=== PATIENT | female | born 2000 | race Two or more races ===

== ENCOUNTER 2022-07-10 22:20 | Outpatient (REF) | payer OTHER, SELFPAY | END 2022-07-10 22:21 | LOC: LAB 22:20 | PROVIDERS: PCP Physician Assistant; Visit Provider Physician Assistant | DX: Z34.93 Encounter for supervision of normal pregnancy, unspecified, third trimester (principal); Z3A.00 Weeks of gestation of pregnancy not specified | CPT/HCPCS: 87081 ==

== ENCOUNTER 2022-07-28 12:16 | Emergency (ER) | payer OTHER, SELFPAY ==
[2022-07-28 12:20] VITALS: BP 115/80; PULSE 84; RESP 16; TEMP 36.3; O2SAT 95; BMI 30.8
--- NOTE | 2022-07-28 12:33 | ED.GENADUL1 ---
HPI - General Adult General Chief complaint: Extremity Injury, Upper Stated complaint: UPPER EXTERMITY INJURY LEFT THUMB Time Seen by Provider: 07/28/22 12:27 Source: patient Mode of arrival: walk-in History of Present Illness HPI narrative: patient accidentally cut herself with a knife at home while open a box. She sustained a small cut to the dorsal surface of the left thumb. Bleeding is controlled. She washed the thumb after the injury. She is right handed and tetanus is up to date. Related Data Allergies Allergy/AdvReac Type Severity Reaction Status Date / Time No Known Drug Allergies Allergy Verified 07/28/22 12:24 Exam Narrative Exam Narrative: Nurses notes and vital signs reviewed and patient is not hypoxic. afebrile General: Well-appearing and in no apparent distress. Skin: Warm, dry, no pallor noted. Cardiovascular: normal peripheral perfusion Respiratory: No accessory muscle use or respiratory distress. Musculoskeletal: 4mm linear and shallow laceration to the dorsal surface of the left thumb. No foreign material within the wound. Bleeding is controlled. The left thumb has normal ROM. Not deep enough to affect the tendon. Neurological: A&O x4. No cranial nerve dysfunction observed. No truncal ataxia. Moves all extremities. Sensation intact. Psychiatric: Cooperative and interactive. Normal mood and affect. Constitutional Vital Signs - 24 hr 07/28/22 12:20 Temperature 97.3 F L Pulse Rate [Monitor] 84 Respiratory Rate 16 Blood Pressure [Right Arm] 115/80 H Pulse Oximetry 95 Oxygen Delivery Method Room Air Course Vital Signs Vital signs: Vital Signs Temperature 97.3 F L 07/28/22 12:20 Pulse Rate 84 07/28/22 12:20 Respiratory Rate 16 07/28/22 12:20 Blood Pressure 115/80 H 07/28/22 12:20 Pulse Oximetry 95 07/28/22 12:20 Oxygen Delivery Method Room Air 07/28/22 12:20 Temperature 97.3 F L 07/28/22 12:20 Pulse Rate 84 07/28/22 12:20 Respiratory Rate 16 07/28/22 12:20 Blood Pressure 115/80 H 07/28/22 12:20 Pulse Oximetry 95 07/28/22 12:20 Oxygen Delivery Method Room Air 07/28/22 12:20 Medical Decision Making MDM Narrative Medical decision making narrative: no need for suture repair. I applied a dry sterile bandage to the patient's left thumb and she was given reassurance. Discharge Plan Discharge Chief Complaint: Extremity Injury, Upper Clinical Impression: Laceration of left thumb Patient Disposition: Home, Self-Care Time of Disposition Decision: 12:36 Instructions: Finger Laceration (ED) Stand Alone Forms: Portal Instructions Referrals: Physician,Non-Staff, MD [Primary Care Provider] - 1 week
== END 2022-07-28 12:56 | disposition home or self-care (01) ==
PROVIDERS: Emergency Provider Emergency Medicine
DX: S61.012A Laceration without foreign body of left thumb without damage to nail, initial encounter (principal); W26.0XXA Contact with knife, initial encounter
CPT/HCPCS: 99282

== ENCOUNTER 2022-08-01 13:24 | Inpatient (IN) | payer OTHER, SELFPAY ==
[2022-08-01] VITALS (31 sets, daily range): BP systolic 96–117; BP diastolic 61–81; PULSE 60–106; RESP 11–25; TEMP 36.6–37.3; O2SAT 97–100
[2022-08-01 10:10] LABS: Amphetamine Screen Urine NEGATIVE (NEGATIVE); Barbiturates Screen Urine NEGATIVE (NEGATIVE); Benzodiazepines Screen Urine NEGATIVE (NEGATIVE); Buprenorphine Screen Urine NEGATIVE (NEGATIVE); Cannabinoid Screen Urine NEGATIVE (NEGATIVE); Cocaine Screen Urine NEGATIVE (NEGATIVE); Methadone Screen Urine NEGATIVE (NEGATIVE); Methamphetamines Screen Urine NEGATIVE (NEGATIVE); Opiate Screen Urine NEGATIVE (NEGATIVE); Oxycodone Screen Urine NEGATIVE (NEGATIVE); Phencyclidine Screen Urine NEGATIVE (NEGATIVE); Tricyclic Antidepressant Urine NEGATIVE (NEGATIVE)
[2022-08-01 10:13] LABS: Basophils Percent Auto 0.3 % (0.2-2.0); Eosinophils Absolute Auto 0.1 10^3/uL (0.0-0.7); Eosinophils Percent Auto 0.9 % (0.9-7.0); Hematocrit 27.1 % (36.0-48.0); Hemoglobin 8.2 g/dL (12.0-16.0); Immature Granulocytes Abs Auto 0.07 10^3/uL (0.00-0.03); Immature Granulocytes Pct Auto 0.9 % (0.0-0.5); Lymphocytes Percent Auto 26.6 % (20.5-60.0); Mean Corpuscular HGB Conc 30.3 g/dL (29.9-35.2); Mean Corpuscular Hemoglobin 24.3 pg (26.7-34.0); Mean Corpuscular Volume 80.2 fL (81.0-99.0); Mean Platelet Volume 10.6 fL (9.5-13.5); Monocytes Absolute Auto 0.7 10^3/uL (0.3-0.8); Monocytes Percent Auto 9.3 % (1.7-12.0); Neutrophils Absolute Auto 4.6 10^3/uL (1.4-6.5); Platelet Count 200 10^3/uL (150-450); Red Blood Count 3.38 10^6/uL (4.20-5.40); Red Cell Distribution Width 16.5 % (11.0-15.0); White Blood Count 7.4 10^3/uL (4.0-11.0)
[2022-08-01] MEDS: METOCLOPRAMIDE HCL 10 MG/2 ML VIAL IVP (10:28)
[2022-08-01] MEDS: CITRIC ACID/SODIUM CITRATE 30 ML SOLUTION PO (10:28)
[2022-08-01] MEDS: CEFAZOLIN SODIUM/DEXTROSE 2 GM/50 ML PIGGYBACK IV (10:29)
[2022-08-01] MEDS: FAMOTIDINE/PF 20 MG/2 ML VIAL IV (10:29)
[2022-08-01] MEDS: 0.9 % SODIUM CHLORIDE 1,000 ML 125 ML IV ×2 (10:29→17:12)
--- NOTE | 2022-08-01 11:31 | PC.NURSE ---
HEART TONES 140BPM PER [facility] NURSE PRIOR TO START OF CASE
[2022-08-01] MEDS: ACETAMINOPHEN 325 MG TABLET 650 MG PO (14:47)
--- NOTE | 2022-08-01 16:48 | PC.NURSE ---
1300- remains at breast, actively nursing 1340-eats lunch, tolerates well. assessment wnl, drsg dry. rubra minimal 1400-Tylenol 650 given as requested for 6/10 incisonal pain, drsg remains dry. rubra minimal 1500-visitors in, pt denies needs. drsg dry 1600-dozing, visitors in, denies needs.
[2022-08-01] MEDS: KETOROLAC TROMETHAMINE 30 MG/ML VIAL IVP (17:11)
[2022-08-01] MEDS: CEFAZOLIN SODIUM/DEXTROSE,ISO 1 GM/50 ML IV.SOLN IV (17:19)
--- NOTE | 2022-08-01 19:08 | PC.NURSE ---
1700- nurses for approx 1hr. 1840-eats supper, denies needs. 1900-report to next shift. care rellinquished
[2022-08-02] VITALS (29 sets, daily range): BP systolic 99–126; BP diastolic 60–84; PULSE 75–93; RESP 16–18; TEMP 36.6–37.3; O2SAT 97
--- NOTE | 2022-08-02 03:01 | W.PC.ACHO ---
Registration Status: ADM IN Primary Language: Preferred Language: Active Medications Generic Name Dose Route Start Last Admin Trade Name Freq PRN Reason Stop Dose Admin Acetaminophen 650 mg 08/01/22 14:40 08/01/22 14:47 Acetaminophen 325 Mg Tablet PO 650 mg Q6H PRN Administration Pain Diphenhydramine HCl 25 mg 08/01/22 14:23 Diphenhydramine Hcl 50 Mg/Ml (1ml) Vial IV 08/02/22 14:24 Q6H PRN Itching Docusate Sodium 100 mg 08/02/22 09:00 Docusate Sodium 100 Mg Capsule PO BID SYBIL Sodium Chloride 1,000 mls @ 125 mls/hr 08/01/22 09:30 08/01/22 17:12 Sodium Chloride 0.9% 1,000 Ml IV 125 mls/hr .Q8H SYBIL Administration Ibuprofen 800 mg 08/01/22 14:23 Ibuprofen 400 Mg Tablet PO Q8H PRN Pain Ketorolac Tromethamine 30 mg 08/01/22 14:23 08/01/22 17:11 Ketorolac Tromethamine 30 Mg/Ml Vial IVP 08/03/22 14:24 30 mg Q6H PRN Administration Pain Nalbuphine HCl 10 mg 08/01/22 14:23 Nalbuphine Hcl 10 Mg/Ml Ampule IV 08/02/22 14:24 Q3H PRN Itching Ondansetron HCl 4 mg 08/01/22 14:23 Ondansetron Pf 4 Mg/2 Ml Vial IV Q6H PRN Nausea And Vomiting Ondansetron HCl 4 mg 08/01/22 14:23 Ondansetron 4 Mg Rapdis Tablet PO Q6H PRN Nausea And Vomiting Oxycodone/Acetaminophen 2 each 08/01/22 14:23 Oxycodone Hcl/Acetaminophen 5-325 Mg Tablet PO Q4H PRN Pain Rho Immune Globulin 1,500 unit 08/02/22 08:00 Rho(D) Immune Globulin 1,500 Unit Syringe IV 08/02/22 08:01 ONCE ONE Senna 17.2 mg 08/01/22 20:00 Sennosides 8.6 Mg Tablet PO QHS PRN Constipation Simethicone 80 mg 08/01/22 14:23 Simethicone 80 Mg Tab.Chew PO QID PRN Abdominal Distention Diet Category Date Time Status Regular Consistency Diet Diet 08/01/22 Lunch Active IV Insertion/Site IV Catheter Type [Right Peripheral IV Forearm] IV Catheter Type [Right Peripheral IV Forearm] Neurology Lauren coma scale total score 15 Lauren coma scale total score 15 Comstock coma scale total score 15 Respiratory Lung sounds [Bilateral clear Throughout] Lung sounds [Bilateral clear Throughout] Lung sounds [Bilateral clear Throughout] Lung sounds [Bilateral clear Throughout] Pulse Oximetry 97 Pulse Oximetry 97 Pulse Oximetry 97 Pulse Oximetry 99 Pulse Oximetry 100 Pulse Oximetry 100 Pulse Oximetry 100 Pulse Oximetry 100 Pulse Oximetry 100 Pulse Oximetry 100 Pulse Oximetry 100 Pulse Oximetry 100 Pulse Oximetry 100 Pulse Oximetry 100 Pulse Oximetry 100 Oxygen Delivery Method Room Air Oxygen Delivery Method Room Air Oxygen Delivery Method Room Air Oxygen Delivery Method Room Air Oxygen Delivery Method Room Air Oxygen Delivery Method Room Air Cardiology Heart Sounds Regular Catheter Urinary Catheter Date of 08/01/22 Insertion [Urethral] Urinary Catheter Date of 08/01/22 Insertion [Urethral] Urinary Catheter Date of 08/01/22 Insertion [Urethral] Urinary Catheter Time of 10:00 Insertion [Urethral]
[2022-08-02] MEDS: KETOROLAC TROMETHAMINE 30 MG/ML VIAL IVP ×3 (06:04→21:48)
--- NOTE | 2022-08-02 08:36 | W.PC.ACHO ---
Registration Status: ADM IN Primary Language: Preferred Language: Active Medications Generic Name Dose Route Start Last Admin Trade Name Freq PRN Reason Stop Dose Admin Acetaminophen 650 mg 08/01/22 14:40 08/01/22 14:47 Acetaminophen 325 Mg Tablet PO 650 mg Q6H PRN Administration Pain Diphenhydramine HCl 25 mg 08/01/22 14:23 Diphenhydramine Hcl 50 Mg/Ml (1ml) Vial IV 08/02/22 14:24 Q6H PRN Itching Docusate Sodium 100 mg 08/02/22 09:00 Docusate Sodium 100 Mg Capsule PO BID SYBIL Sodium Chloride 1,000 mls @ 125 mls/hr 08/01/22 09:30 08/01/22 17:12 Sodium Chloride 0.9% 1,000 Ml IV 125 mls/hr .Q8H SYBIL Administration Ibuprofen 800 mg 08/01/22 14:23 Ibuprofen 400 Mg Tablet PO Q8H PRN Pain Ketorolac Tromethamine 30 mg 08/01/22 14:23 08/02/22 06:04 Ketorolac Tromethamine 30 Mg/Ml Vial IVP 08/03/22 14:24 30 mg Q6H PRN Administration Pain Nalbuphine HCl 10 mg 08/01/22 14:23 Nalbuphine Hcl 10 Mg/Ml Ampule IV 08/02/22 14:24 Q3H PRN Itching Ondansetron HCl 4 mg 08/01/22 14:23 Ondansetron Pf 4 Mg/2 Ml Vial IV Q6H PRN Nausea And Vomiting Ondansetron HCl 4 mg 08/01/22 14:23 Ondansetron 4 Mg Rapdis Tablet PO Q6H PRN Nausea And Vomiting Oxycodone/Acetaminophen 2 each 08/01/22 14:23 Oxycodone Hcl/Acetaminophen 5-325 Mg Tablet PO Q4H PRN Pain Senna 17.2 mg 08/01/22 20:00 Sennosides 8.6 Mg Tablet PO QHS PRN Constipation Simethicone 80 mg 08/01/22 14:23 Simethicone 80 Mg Tab.Chew PO QID PRN Abdominal Distention Diet Category Date Time Status Regular Consistency Diet Diet 08/01/22 Lunch Active IV Insertion/Site IV Catheter Type [Right Peripheral IV Forearm] IV Catheter Type [Right Peripheral IV Forearm] Neurology Jasper coma scale total score 15 Jasper coma scale total score 15 Jasper coma scale total score 15 Respiratory Lung sounds [Bilateral clear Throughout] Lung sounds [Bilateral clear Throughout] Lung sounds [Bilateral clear Throughout] Lung sounds [Bilateral clear Throughout] Pulse Oximetry 97 Pulse Oximetry 97 Pulse Oximetry 97 Pulse Oximetry 99 Pulse Oximetry 100 Pulse Oximetry 100 Pulse Oximetry 100 Pulse Oximetry 100 Pulse Oximetry 100 Pulse Oximetry 100 Pulse Oximetry 100 Pulse Oximetry 100 Pulse Oximetry 100 Pulse Oximetry 100 Pulse Oximetry 100 Oxygen Delivery Method Room Air Oxygen Delivery Method Room Air Oxygen Delivery Method Room Air Oxygen Delivery Method Room Air Oxygen Delivery Method Room Air Oxygen Delivery Method Room Air Cardiology Heart Sounds Regular Catheter Urinary Catheter Date of 08/01/22 Insertion [Urethral] Urinary Catheter Date of 08/01/22 Insertion [Urethral] Urinary Catheter Date of 08/01/22 Insertion [Urethral] Urinary Catheter Time of 10:00 Insertion [Urethral]
--- NOTE | 2022-08-02 08:44 | PC.NURSE ---
pt up to bathroom with RN assist. corral discontinued and pt voids. pericare per patient.
[2022-08-02 09:13] LABS: Basophils Percent Auto 0.3 % (0.2-2.0); Eosinophils Absolute Auto 0.1 10^3/uL (0.0-0.7); Eosinophils Percent Auto 0.7 % (0.9-7.0); Immature Granulocytes Abs Auto 0.09 10^3/uL (0.00-0.03); Lymphocytes Absolute Auto 1.8 10^3/uL (1.2-3.8); Lymphocytes Percent Auto 19.8 % (20.5-60.0); Mean Corpuscular HGB Conc 31.3 g/dL (29.9-35.2); Mean Corpuscular Hemoglobin 24.5 pg (26.7-34.0); Mean Corpuscular Volume 78.3 fL (81.0-99.0); Mean Platelet Volume 10.8 fL (9.5-13.5); Monocytes Absolute Auto 0.8 10^3/uL (0.3-0.8); Monocytes Percent Auto 8.6 % (1.7-12.0); Neutrophils Absolute Auto 6.4 10^3/uL (1.4-6.5); Neutrophils Percent Auto 69.6 % (43.0-75.0); Nucleated Red Blood Cells 0.2; Platelet Count 169 10^3/uL (150-450); Red Blood Count 2.77 10^6/uL (4.20-5.40); Red Cell Distribution Width 16.7 % (11.0-15.0); White Blood Count 9.2 10^3/uL (4.0-11.0)
[2022-08-02 09:21] LABS: Hemoglobin 6.8 g/dL (12.0-16.0)
[2022-08-02 09:22] LABS: Hematocrit 21.7 % (36.0-48.0)
[2022-08-02] MEDS: RHO(D) IMMUNE GLOBULIN 1,500 UNIT SYRINGE 1500 UNIT IV (10:58)
--- NOTE | 2022-08-02 12:32 | PM.OBPN ---
OB - PN: Subj Subjective Patient comments: pain well controlled [place] status: well Narrative: , Doing well, improving. After repeat section, has anemia with hemoglobin of 6.8. Exam Narrative Exam Narrative: General exam was normal.? Breast exam was normal.? Respiratory function is normal.? Heart regular rate and rhythm.? Abdomen soft, nontender, bowel sounds positive, uterus is firm, nontender, lochia normal.? incision is clean and intact. Extremities no lesions.? Neurological and psychiatric exams are grossly intact. Constitutional Vital Signs - 24 hr 08/01/22 19:19 08/02/22 00:46 08/02/22 09:27 Temperature Pulse Rate 85 75 85 Respiratory Rate Blood Pressure 104/62 105/68 106/60 Blood Pressure [Right Arm] Pulse Oximetry Oxygen Delivery Method 08/01/22 12:34 08/01/22 12:49 08/01/22 12:35 Temperature 98.4 F Pulse Rate 79 80 78 Respiratory Rate 18 15 16 Blood Pressure 109/67 108/72 109/67 Blood Pressure [Right Arm] Pulse Oximetry 100 100 100 Oxygen Delivery Method Room Air Room Air 08/01/22 12:40 08/01/22 12:45 08/01/22 12:51 Temperature Pulse Rate 74 73 85 Respiratory Rate 24 12 25 H Blood Pressure 105/73 103/67 108/72 Blood Pressure [Right Arm] Pulse Oximetry 100 100 100 Oxygen Delivery Method 08/01/22 13:00 08/01/22 13:15 08/01/22 13:30 Temperature Pulse Rate 69 74 75 Respiratory Rate 14 17 12 Blood Pressure 111/77 117/61 116/70 Blood Pressure [Right Arm] Pulse Oximetry 99 Oxygen Delivery Method 08/01/22 13:45 08/01/22 14:00 08/01/22 14:15 Temperature Pulse Rate 72 63 75 Respiratory Rate 16 17 21 Blood Pressure 114/69 96/74 106/66 Blood Pressure [Right Arm] Pulse Oximetry Oxygen Delivery Method 08/01/22 14:33 08/01/22 14:40 08/01/22 14:50 Temperature Pulse Rate 71 77 74 Respiratory Rate 19 17 11 L Blood Pressure Blood Pressure [Right Arm] Pulse Oximetry Oxygen Delivery Method 08/01/22 15:00 08/01/22 15:10 08/01/22 15:20 Temperature Pulse Rate 68 61 60 Respiratory Rate 21 17 14 Blood Pressure Blood Pressure [Right Arm] Pulse Oximetry Oxygen Delivery Method 08/01/22 15:30 08/01/22 17:41 08/01/22 19:43 Temperature Pulse Rate 70 Respiratory Rate 20 18 Blood Pressure Blood Pressure [Right Arm] Pulse Oximetry 97 97 Oxygen Delivery Method Room Air Room Air 08/01/22 19:35 08/01/22 17:31 08/02/22 00:56 Temperature 99.2 F 99.2 F Pulse Rate Respiratory Rate 16 Blood Pressure Blood Pressure [Right Arm] Pulse Oximetry 97 Oxygen Delivery Method Room Air 08/02/22 05:35 08/02/22 11:08 08/02/22 11:15 Temperature 98.0 F 97.9 F 98.1 F Pulse Rate 83 79 77 Respiratory Rate 16 16 16 Blood Pressure 112/63 113/60 Blood Pressure [Right Arm] 119/73 Pulse Oximetry 97 Oxygen Delivery Method Results Labs Labs: Short CBC 08/02/22 Range/Units 09:05 WBC 9.2 (4.0-11.0) 10^3/uL Hgb 6.8 L* (12.0-16.0) g/dL Hct 21.7 L* (36.0-48.0) % Plt Count 169 (150-450) 10^3/uL OB - PN: A/P Assessment and Plan (1) Acute blood loss as cause of postoperative anemia: Plan - day: 1 Plan: routine postop care Comment: Plan to transfuse two units of packed RBCs and recheck hemoglobin in the morning. Time Spent with Patient Time: Total time spent is greater than 50% in coordination of care (as documented) at patient's floor/unit and/or counseling patient: Total time spent with greater than 50% in coordination of care (as documented) at patient's floor/unit and/or counseling patient: less than 15 minutes
--- NOTE | 2022-08-02 15:27 | PC.NURSE ---
Retrieved ice water and a glass of ice per patient request prior to leaving room. Pt denies any further needs at this time
--- NOTE | 2022-08-02 15:28 | PC.NURSE ---
Was second nurse for blood check at beside with Sarika Tyler RN
[2022-08-02] MEDS: DOCUSATE SODIUM 100 MG CAPSULE PO (21:48)
[2022-08-03 00:43] VITALS: BP 102/55; PULSE 86; TEMP 37
[2022-08-03 06:37] LABS: Basophils Percent Auto 0.4 % (0.2-2.0); Eosinophils Absolute Auto 0.2 10^3/uL (0.0-0.7); Eosinophils Percent Auto 2.3 % (0.9-7.0); Hematocrit 26.4 % (36.0-48.0); Hemoglobin 8.5 g/dL (12.0-16.0); Immature Granulocytes Abs Auto 0.12 10^3/uL (0.00-0.03); Immature Granulocytes Pct Auto 1.3 % (0.0-0.5); Lymphocytes Absolute Auto 2.2 10^3/uL (1.2-3.8); Lymphocytes Percent Auto 24.9 % (20.5-60.0); Mean Corpuscular HGB Conc 32.2 g/dL (29.9-35.2); Mean Corpuscular Hemoglobin 25.8 pg (26.7-34.0); Monocytes Absolute Auto 0.8 10^3/uL (0.3-0.8); Monocytes Percent Auto 8.3 % (1.7-12.0); Neutrophils Absolute Auto 5.6 10^3/uL (1.4-6.5); Neutrophils Percent Auto 62.8 % (43.0-75.0); Platelet Count 166 10^3/uL (150-450); Red Cell Distribution Width 16.6 % (11.0-15.0)
--- NOTE | 2022-08-03 07:14 | W.PC.ACHO ---
Registration Status: ADM IN Primary Language: Preferred Language: Active Medications Generic Name Dose Route Start Last Admin Trade Name Freq PRN Reason Stop Dose Admin Acetaminophen 650 mg 08/01/22 14:40 08/01/22 14:47 Acetaminophen 325 Mg Tablet PO 650 mg Q6H PRN Administration Pain Docusate Sodium 100 mg 08/02/22 09:00 08/02/22 21:48 Docusate Sodium 100 Mg Capsule PO 100 mg BID SYBIL Administration Sodium Chloride 1,000 mls @ 125 mls/hr 08/01/22 09:30 08/01/22 17:12 Sodium Chloride 0.9% 1,000 Ml IV 125 mls/hr .Q8H SYBIL Administration Ibuprofen 800 mg 08/01/22 14:23 Ibuprofen 400 Mg Tablet PO Q8H PRN Pain Ketorolac Tromethamine 30 mg 08/01/22 14:23 08/02/22 21:48 Ketorolac Tromethamine 30 Mg/Ml Vial IVP 08/03/22 14:24 30 mg Q6H PRN Administration Pain Ondansetron HCl 4 mg 08/01/22 14:23 Ondansetron Pf 4 Mg/2 Ml Vial IV Q6H PRN Nausea And Vomiting Ondansetron HCl 4 mg 08/01/22 14:23 Ondansetron 4 Mg Rapdis Tablet PO Q6H PRN Nausea And Vomiting Oxycodone/Acetaminophen 2 each 08/01/22 14:23 Oxycodone Hcl/Acetaminophen 5-325 Mg Tablet PO Q4H PRN Pain Senna 17.2 mg 08/01/22 20:00 Sennosides 8.6 Mg Tablet PO QHS PRN Constipation Simethicone 80 mg 08/01/22 14:23 Simethicone 80 Mg Tab.Chew PO QID PRN Abdominal Distention Neurology Lauren coma scale total score 15 Respiratory Lung sounds [Bilateral clear Throughout] Pulse Oximetry 97 Pulse Oximetry 97 Oxygen Delivery Method Room Air Oxygen Delivery Method Room Air
[2022-08-03 10:07] VITALS: BP 104/59; PULSE 85
[2022-08-03 10:08] VITALS: TEMP 36.7
[2022-08-03] MEDS: DOCUSATE SODIUM 100 MG CAPSULE PO (10:08)
[2022-08-03] MEDS: KETOROLAC TROMETHAMINE 30 MG/ML VIAL IVP (10:08)
--- NOTE | 2022-08-03 12:30 | PM.OBPN ---
OB - PN: Subj Subjective Patient comments: no complaints and pain well controlled [place] status: doing well and well Exam Narrative Exam Narrative: General exam was normal.? Breast exam was normal.? Respiratory function is normal.? Heart regular rate and rhythm.? Abdomen soft, nontender, bowel sounds positive, uterus is firm, nontender, lochia normal.? incision is clean and intact. Extremities no lesions.? Neurological and psychiatric exams are grossly intact. Constitutional Vital Signs - 24 hr 08/02/22 15:27 08/02/22 15:42 08/02/22 15:56 Temperature Pulse Rate 81 83 75 Respiratory Rate Blood Pressure 105/67 100/62 100/62 Pulse Oximetry Oxygen Delivery Method 08/02/22 16:12 08/02/22 16:27 08/02/22 16:41 Temperature Pulse Rate 93 H 90 87 Respiratory Rate Blood Pressure 108/73 99/70 102/65 Pulse Oximetry Oxygen Delivery Method 08/02/22 16:56 08/02/22 17:12 08/03/22 00:43 Temperature 98.6 F Pulse Rate 93 H 83 86 Respiratory Rate Blood Pressure 107/72 99/65 102/55 L Pulse Oximetry Oxygen Delivery Method 08/03/22 10:07 08/02/22 15:30 08/02/22 15:37 Temperature 98.2 F 98.4 F Pulse Rate 85 81 Respiratory Rate 16 16 Blood Pressure 104/59 L 105/67 Pulse Oximetry Oxygen Delivery Method 08/02/22 17:30 08/02/22 19:57 08/02/22 15:30 Temperature 98.0 F 98.0 F Pulse Rate 83 Respiratory Rate 18 16 16 Blood Pressure 99/65 Pulse Oximetry 97 Oxygen Delivery Method Room Air 08/02/22 19:01 08/02/22 20:02 08/02/22 12:45 Temperature 98.1 F 98.0 F Pulse Rate 80 80 Respiratory Rate 18 16 Blood Pressure 99/64 99/64 118/66 Pulse Oximetry 97 Oxygen Delivery Method Room Air 08/02/22 13:00 08/02/22 13:00 08/02/22 18:00 Temperature 98.2 F Pulse Rate 86 Respiratory Rate 16 Blood Pressure 126/69 H 126/69 H 116/84 H Pulse Oximetry Oxygen Delivery Method 08/02/22 13:30 08/03/22 10:08 Temperature 98.9 F 98.1 F Pulse Rate 84 Respiratory Rate 16 Blood Pressure 116/70 Pulse Oximetry Oxygen Delivery Method Results Labs Labs: Short CBC 08/03/22 Range/Units 06:22 WBC 9.0 (4.0-11.0) 10^3/uL Hgb 8.5 L (12.0-16.0) g/dL Hct 26.4 L (36.0-48.0) % Plt Count 166 (150-450) 10^3/uL OB - PN: A/P Assessment and Plan (1) Acute blood loss as cause of postoperative anemia: Plan , day two, status post section, improving. Doing better after her blood transfusion, hemoglobin is 8.5, up from 6.8. Asymptomatic. Discharge home with prescription for Motrin 800 mg three times a day. Declined Percocet. Plan - day: 2 Plan: routine postop care and discharge home Time Spent with Patient Time: Total time spent is greater than 50% in coordination of care (as documented) at patient's floor/unit and/or counseling patient: Total time spent with greater than 50% in coordination of care (as documented) at patient's floor/unit and/or counseling patient: less than 15 minutes
[2022-08-03 15:31] VITALS: BP 112/79; PULSE 78
[2022-08-03 16:35] VITALS: RESP 16; TEMP 36.6
--- NOTE | 2022-08-03 17:15 | DS_ITS ---
DISCHARGE DATE: ?08/03/2022 ? PRIMARY DIAGNOSES: 1.? Intrauterine at 39 weeks. 2.? Previous . ? PROCEDURE:? Previous . ? HOSPITAL COURSE:? As expected.? Please see chart for full details.? ? LABORATORY DATA:? Please see chart. ? COMPLICATIONS:? None. ? DISCHARGE CONDITION:? Stable. ? CONSULTATION:? Anesthesia. ? DISCHARGE INSTRUCTIONS: 1.? Diet:? Regular. 2.? Medications: a.? Percocet 5/325 one to two p.o. every 4-6 hours p.r.n. pain. b.? Motrin 800 one p.o. every 8 hours p.r.n. pain. 3.? Followup in one week. Restrictions:? Pelvic rest for 6 weeks.? No heavy lifting.? May drive when pain free and no longer on narcotics. MTDD
== END 2022-08-03 17:15 | disposition home or self-care (01) | DRG 540 ==
PROVIDERS: Admitting Provider Obstetrics & Gynecology; Visit Provider Obstetrics & Gynecology
PROC: 10D00Z1 Extraction of Products of Conception, Low, Open Approach (ICD-10-PCS; CPT 59514; principal; 2022-08-01 11:10)
DX: O34.211 Maternal care for low transverse scar from previous cesarean delivery (principal); O24.420 Gestational diabetes mellitus in childbirth, diet controlled; O90.81 Anemia of the puerperium; D62 Acute posthemorrhagic anemia; Z3A.39 39 weeks gestation of pregnancy; Z37.0 Single live birth
CPT/HCPCS: 36415; 36430; 59050; 80307; 85025; 85461; 86850; 86900; 86901; 86920; 94667; 94761; 96372; 96374; 96375; 96376; J2790; P9016

== ENCOUNTER 2024-10-24 13:49 | Emergency (ER) | payer BC, SELFPAY ==
[2024-10-24 14:03] VITALS: BP 120/84; PULSE 82; TEMP 36.6; O2SAT 98; BMI 25.5
--- NOTE | 2024-10-24 14:18 | ED_ITS ---
HPI - General Chief complaint: Vaginal Bleeding Stated complaint: 7 WEEKS SPOTTING SENT BY KIKI Time Seen by Provider: 10/24/24 13:59 Source: patient Mode of arrival: walk-in Limitations: no limitations History of Present Illness HPI Narrative: 24-year-old female, approximately 7 weeks gestation, presents with vaginal bleeding that began yesterday morning. Reports passing tissue last night, with continued light bleeding today. Mild cramping but no severe abdominal pain. Denies lightheadedness, dizziness, fever, chills, nausea, vomiting, or syncope. She is Rh negative. She has not yet been seen by her OB provider (Dr. Houston) for this . Related Data Allergies Allergy/AdvReac Type Severity Reaction Status Date / Time No Known Drug Allergies Allergy Verified 10/24/24 14:03 [facility] Medical History (Updated 10/24/24 @ 17:25 by CAM LYNCH) Acute blood loss as cause of postoperative anemia ?D62 - Acute posthemorrhagic anemia (ICD-10) Social History Little interest or pleasure in doing things: not at all Feeling down, depressed, or hopeless: not at all Exam Narrative Exam Narrative: General: Alert, oriented ?3, calm, cooperative, no acute distress Cardiac: Regular rate and rhythm, no murmurs, rubs, or gallops, distal pulses 2+ and equal bilaterally, cap refill < 2 sec Respiratory: Lungs clear to auscultation bilaterally, no wheezes, rales, or rhonchi, normal work of breathing Abdomen: Soft, nondistended, bowel sounds present, no rebound, guarding, or peritoneal signs, no palpable masses Pelvic Exam: * External genitalia normal, no lesions * Small amount of clots in vaginal vault * Cervical os closed, no active bleeding from cervix * No adnexal masses palpated, no cervical motion tenderness Extremities: Warm, well-perfused, no edema Skin: Warm, dry, no rashes Neuro: Alert, interactive, follows commands, speech clear, cranial nerves grossly intact, moves all extremities spontaneously, sensation intact, gait steady Constitutional Vital Signs, click to edit/add: Last Vital Signs Temp 98 F 10/24/24 14:03 Pulse 82 10/24/24 14:03 Resp 16 10/24/24 14:03 BP 120/84 10/24/24 14:03 Pulse Ox 98 10/24/24 14:03 O2 Del Method Room Air 10/24/24 14:03 Course Vital Signs Vital signs: Vital Signs Temperature 98 F 10/24/24 14:03 Pulse Rate 82 10/24/24 14:03 Respiratory Rate 16 10/24/24 14:03 Blood Pressure 120/84 10/24/24 14:03 Pulse Oximetry 98 10/24/24 14:03 Oxygen Delivery Method Room Air 10/24/24 14:03 Temperature 98 F 10/24/24 14:03 Pulse Rate 82 10/24/24 14:03 Respiratory Rate 16 10/24/24 14:03 Blood Pressure 120/84 10/24/24 14:03 Pulse Oximetry 98 10/24/24 14:03 Oxygen Delivery Method Room Air 10/24/24 14:03 MDM - OB/Uterine Contractions MDM Narrative Medical decision making narrative: 24-year-old female, ~7 weeks gestation, presenting with vaginal bleeding and mild cramping. Hemodynamically stable, exam reassuring with closed cervix and no adnexal tenderness. Labs show hCG 371, hemoglobin stable. Transvaginal ultrasound shows no IUP and a left ovarian hypoechoic lesion most consistent with corpus luteum cyst but cannot rule out ectopic . I discussed this case directly with Dr. Houston (CREPE MAKER), including patient?s clinical status, hCG level, and ultrasound findings. He recommends: * Repeat quantitative hCG in 48 hours * Outpatient OB follow-up within 1 week * Strict return precautions for worsening pain, heavy vaginal bleeding (>1 pad/hr), lightheadedness, or syncope Patient is Rh negative and was given RhoGAM in the ED. I had a detailed discussion with the patient and her partner about likely miscarriage, the need to exclude ectopic , importance of repeat hCG testing, and reasons to return immediately. Patient and partner verbalized understanding and agree with plan. Discharged home in stable condition. Lab Data Attestation: I reviewed the patient's lab results. Labs: Lab Results 10/24/24 10/24/24 Range/Units 14:38 15:33 WBC 6.0 (4.0-11.0) 10^3/uL RBC 4.36 (4.20-5.40) 10^6/uL Hgb 14.0 (12.0-16.0) g/dL Hct 40.5 (36.0-48.0) % MCV 92.9 (81.0-99.0) fL MCH 32.1 (26.7-34.0) pg MCHC 34.6 (29.9-35.2) g/dL RDW 13.2 (11.0-15.0) % Plt Count 237 (150-450) 10^3/uL MPV 10.0 (9.5-13.5) fL Neut % (Auto) 71.8 (43.0-75.0) % Lymph % (Auto) 20.5 (20.5-60.0) % [place] % (Auto) 6.5 (1.7-12.0) % Eos % (Auto) 0.5 L (0.9-7.0) % Baso % (Auto) 0.5 (0.2-2.0) % Neut # (Auto) 4.3 (1.4-6.5) 10^3/uL Lymph # (Auto) 1.2 (1.2-3.8) 10^3/uL [place] # (Auto) 0.4 (0.3-0.8) 10^3/uL Eos # (Auto) 0.0 (0.0-0.7) 10^3/uL Baso # (Auto) 0.0 (0.0-0.1) 10^3/uL Abs Immat Gran (auto) 0.01 (0.00-0.03) 10^3/uL Imm/Tot Granulo (auto) 0.2 (0.0-0.5) % Sodium 140 (136-145) mmol/L Potassium 4.1 (3.5-5.1) mmol/L Chloride 104 (98-107) mmol/L Carbon Dioxide 25.8 (21.0-32.0) mmol/L Anion Gap 14.3 BUN 12.0 (7.0-18.0) mg/dL Creatinine 0.81 (0.55-1.02) mg/dL Est GFR ( Amer) >60 (>=60 mL/min/1.73m^2) Est GFR (Non-Af Amer) >60 (>=60 mL/min/1.73m^2) BUN/Creatinine Ratio 14.8 Glucose 95 (74-106) mg/dL Calcium 9.0 (8.5-10.1) mg/dL Total Bilirubin 0.4 (0.2-1.0) mg/dL AST 23 (15-37) U/L ALT 39 (14-59) U/L Alkaline Phosphatase 53 (46-116) U/L Total Protein 7.8 (6.4-8.2) g/dL Albumin 4.2 (3.4-5.0) g/dL Globulin 3.6 g/dL Albumin/Globulin Ratio 1.2 HCG, Quant 371 mIU/mL Urine Color Lt. yellow (YELLOW) Urine Clarity Clear (CLEAR) Urine pH 6.5 (5.0-9.0) Ur Specific Baker 1.020 (1.005-1.025) Urine Protein Negative (NEG/TRACE) mg/dL Urine Glucose (UA) Negative (NEGATIVE) mg/dL Urine Ketones Negative (NEGATIVE) mg/dL Urine Occult Blood Large A (NEGATIVE) Urine Nitrite Negative (NEGATIVE) Urine Bilirubin Negative (NEGATIVE) Urine Urobilinogen 1.0 (0.2-1.0) EU/dL Ur Leukocyte Esterase Negative (NEGATIVE) Urine RBC 10-20 A (0-2) #/HPF Urine WBC None seen (NONE SEEN) #/HPF Ur Squamous Epith Cells Moderate A (NONE/RARE) #/LPF Urine Crystals None seen (None Seen) #/HPF Urine Bacteria Small A (NONE SEEN) #/HPF Urine Casts None seen (NONE SEEN) #/LPF Urine Mucus Small A (NONE SEEN) Ur Culture Indicated? Yes-[facility] [place] Type A Negative Antibody Screen Negative Rhogam Indicated Yes Imaging Data US - abdomen: Attestation: I have reviewed the pertinent imaging results. Radiologist's impression: ITS Impressions Transvaginal US 10/24/24 14:28 IMPRESSION: No evidence of intrauterine . There is a hypoechoic structure within the left ovary measuring 1.8 x 1.0 x 1.3 cm in greatest dimension. There is a small amount of blood flow at the periphery on color Doppler imaging. While this may represent a complex corpus luteum cyst, an ectopic is not excluded. Correlation with serial beta hCG and ultrasound is recommended. Impression dictated by: Carl Knox M.D. 10/24/2024 4:18 PM Dictation Location: [place] [address] Electronically authenticated by: [id number] Y Date: 10/24/2024 16:18 Discharge Plan Discharge Chief Complaint: Vaginal Bleeding Clinical Impression: Miscarriage at 8 to 28 weeks gestation Patient Disposition: Home, Self-Care Time of Disposition Decision: 17:23 Condition: Good Mode of Transportation: Private Vehicle Print Language: Arabic Instructions: Miscarriage (ED) Additional Instructions: After Visit Summary (AVS) Reason for Visit: * Vaginal bleeding during early (about 7 weeks) What We Found: * Pelvic exam showed a few small clots, but your cervix is closed * Your hemoglobin is normal * hormone (hCG) level is 371 * Ultrasound did not show a in the uterus * You received RhoGAM because you are Rh negative These findings may mean that you are likely having a miscarriage ( loss). Some early pregnancies are not yet visible on ultrasound, so we need to recheck your bloodwork to know more. Next Steps: * Repeat hCG test in 48 hours * Follow up with Dr. Houston (CREPE MAKER) in 1 week Home Care: * Rest and avoid strenuous activity or heavy lifting * Stay hydrated * Track how much you are bleeding Return to the ER Immediately If You Have: * Heavy bleeding (soaking more than 1 pad per hour) * Severe abdominal or pelvic pain * Dizziness, fainting, or feeling very weak * Fever or chills We understand this is stressful. The repeat blood test is very important to help confirm what is happening. Referrals: Paloma Ascencio NP [Primary Care Provider] - 1 week Discharge Date/Time: 10/24/24 17:29
--- NOTE | 2024-10-24 14:28 | US_ITS ---
The [address] [address] Patient Name: BIB BERNSTEIN MRN: [id number] date: 2000 Sex: F Assigned Patient Location: ER Current Patient Location: ER Accession/Order Number: [id number] Exam Date: 10/24/2024 15:00 Report Date: 10/24/2024 16:18 At the request of: PEGGY LEVY Procedure: US OB transvaginal EXAMINATION TYPE: US OB transvaginal Grayscale, color scale Doppler, vascular duplex analysis of the bilateral ovaries DATE OF EXAM ORDERED: 10/24/2024 3:29 PM HISTORY: 7 weeks, heavy bleeding, pain 2 days COMPARISON: NONE TECHNIQUE: Realtime Transvaginal and Transabdominal imaging was performed. Transvaginal imaging was utilized to better evaluate the ovaries and the endometrial stripe. Grayscale, color scale Doppler, vascular duplex analysis of the bilateral ovaries was performed to assess blood flow. FINDINGS: The uterus is normal in echogenicity. Endometrium: Normal thickness and appearance. No evidence of intrauterine gestational sac Ovaries: There is a hypoechoic structure within the left ovary measuring 1.8 x 1.0 x 1.3 cm in greatest dimension. There is a small amount of blood flow at the periphery on color Doppler imaging. Right Ovary measurements: 2.0 x 2.1 x 1.8 cm Left Ovary measurements: 2.6 x 2.4 x 2.4 cm No abnormal adnexal mass is seen. No free fluid in the pelvic cul-de-sac. Vascular duplex analysis of the bilateral ovaries demonstrates normal blood flow without evidence of ovarian ischemia. US/US OB transvaginal IMPRESSION: No evidence of intrauterine . There is a hypoechoic structure within the left ovary measuring 1.8 x 1.0 x 1.3 cm in greatest dimension. There is a small amount of blood flow at the periphery on color Doppler imaging. While this may represent a complex corpus luteum cyst, an ectopic is not excluded. Correlation with serial beta hCG and ultrasound is recommended. Impression dictated by: Carl Knox M.D. 10/24/2024 4:18 PM Dictation Location: [place] [address] Electronically authenticated by: [id number] Y Date: 10/24/2024 16:18
[2024-10-24 14:58] LABS: Glucose Urine UA NEGATIVE (NEGATIVE)
[2024-10-24 15:17] LABS: Cast Seen? NONE SEEN #/LPF (NONE SEEN); Crystals Seen? None Seen #/HPF (None Seen); Urine Culture Indicated YES-FRMC
[2024-10-24 15:43] LABS: Hematocrit 40.5 % (36.0-48.0); Hemoglobin 14.0 g/dL (12.0-16.0); Immature Granulocytes Abs Auto 0.01 10^3/uL (0.00-0.03); Immature Granulocytes Pct Auto 0.2 % (0.0-0.5); Lymphocytes Absolute Auto 1.2 10^3/uL (1.2-3.8); Mean Corpuscular HGB Conc 34.6 g/dL (29.9-35.2); Mean Corpuscular Hemoglobin 32.1 pg (26.7-34.0); Mean Corpuscular Volume 92.9 fL (81.0-99.0); Platelet Count 237 10^3/uL (150-450); Red Blood Count 4.36 10^6/uL (4.20-5.40); White Blood Count 6.0 10^3/uL (4.0-11.0)
[2024-10-24 16:01] LABS: Alanine Aminotransferase 39 U/L (14-59); Albumin Globulin Ratio 1.2; Albumin Level 4.2 g/dL (3.4-5.0); Alkaline Phosphatase 53 U/L (46-116); Anion Gap 14.3; Aspartate Amino Transferase 23 U/L (15-37); Blood Urea Nitrogen 12.0 mg/dL (7.0-18.0); Calcium 9.0 mg/dL (8.5-10.1); Carbon Dioxide 25.8 mmol/L (21.0-32.0); Chloride 104 mmol/L (98-107); Estimated GFR (African America >60 (>=60 mL/min/1.73m^2); Estimated GFR (Non-African Ame >60 (>=60 mL/min/1.73m^2); Globulin 3.6 g/dL; Glucose 95 mg/dL (74-106); Potassium 4.1 mmol/L (3.5-5.1); Sodium 140 mmol/L (136-145); Total Protein 7.8 g/dL (6.4-8.2)
[2024-10-24] MEDS: RHO(D) IMMUNE GLOBULIN 1,500 UNIT SYRINGE 1500 UNIT IV (16:54)
== END 2024-10-24 17:29 | disposition home or self-care (01) ==
PROVIDERS: Physician Assistant; Emergency Provider Emergency Medicine; PCP Nurse Practitioner Family
DX: O03.9 Complete or unspecified spontaneous abortion without complication (principal); O26.891 Other specified pregnancy related conditions, first trimester; Z67.91 Unspecified blood type, Rh negative; Z3A.01 Less than 8 weeks gestation of pregnancy
CPT/HCPCS: 36415; 76817; 80053; 81001; 84702; 85025; 86850; 86900; 86901; 87086; 87088; 87186; 96374; 99284; 99285; J2791

== ENCOUNTER 2024-10-26 13:22 | Outpatient (OUT) | payer BC, SELFPAY | END 2024-10-26 13:23 | disposition home or self-care (01) | PROVIDERS: PCP Nurse Practitioner Family; Visit Provider Physician Assistant | DX: O03.9 Complete or unspecified spontaneous abortion without complication (principal) | CPT/HCPCS: 36415; 84702 ==

== ENCOUNTER 2024-11-15 15:50 | Outpatient (OUT) | payer BC, SELFPAY ==
--- OUTSIDE RECORDS SUMMARY | 2024-11-15 15:58 | XMS_ITS | Encounter Summary ---
Author Organization [facility] Address [address] [facility] [address] Care Team Providers Care Finishing Area Operator Name Role Phone Unavailable Primary Care Provider Unavailabl e Encounter Details Date Type Department Care Team (Late st Contact Info) Description 08/02/2022 [facility] [address] [place] [phone] Zack Houston DO [address], [place] [address] Social History Tobacco Use Types Packs/Day Years Used Date Smoking Tobacco: Never Alcohol Use Standard Drinks/Week Comments Never 0 (1 standard drink = 0.6 oz pur e alcohol) Comments Yes Sex and Gender Information Value Date Recorded Sex Assigned at Not on file Legal Sex Female 11:13 PM EDT Gender Identity Not on file Sexual Orientation Not on file documented as of this encounter Plan of Treatment Not on file documented as of this encounter Visit Diagnoses Not on filedocumented in this encounter
--- OUTSIDE RECORDS SUMMARY | 2024-11-15 15:58 | XMS_ITS | Clinical Summary ---
Author Organization [facility] Address [address] [facility] [place] [address] Care Team Providers Care Toilet Attendant Name Role Phone Unavailable Primary Care Provider Unavailabl e Allergies No known active allergies Medications iron polysaccharides (ProFe) 391.3 (180 Fe) MG capsule Take 1 capsule by mouth 1 (one) time each day at the same time. 3 Active Glucose Blood (GLUCOMETER DEX GLUCOSE SENSORS ) every 6 (six) hours. 3 Active Urinary Tract Infection Test (AZO TEST STRIPS ) as directed finger stick as directed for 30 days 3 Active Alcohol Swabs (Alcohol Prep Pads) 70 % pads every 6 (six) hours. 3 Active Vit-DSS-Fe Fum-FA (PNV FE FUM/DOCUSATE/FOLIC ACID PO) PNV Active ibuprofen 800 MG tablet Take 800 mg by mouth 3 (three) times a day as needed. 3 Active Active Problems Problem Noted Date Diagnosed Date S/P section 08/07/2022 Anemia 07/28/2022 Resolved Problems Problem Noted Date Diagnosed Date Resolved Date Foul smelling urine 07/16/2022 07/29/19 23 Kidney stone 07/16/2022 07/28/2022 Missed period 07/16/2022 07/28/2022 Recurrent UTI 07/16/2022 07/28/2022 Encounters Date Type Department Care Team Description 10/31/2024 3:40 PM EDT Office Visit [facility] [address] [place] [address] [place] [address] Zack Houston DO Positive urine test ([facility]); Miscarriage ([facility]) 10/31/2024 Bamboo flowsheet [facility] [address] [place] [address] Zack Houston DO 10/26/2024 Telephone [facility] [address] [place] [address] Meredith Petersen LPN 10/24/2024 Telephone [facility] [address] [place] [address] Opal Agarwal MA from Last 3 Months Family History Medical History Relation Name Comments No Known Problems Son Relation Name Status Comments Brother 1 Alive Brother 2 Alive Father Alive Mother Alive Son Alive Social History Tobacco Use Types Packs/Day Years Used Date Smoking Tobacco: Never Tobacco Cessation:Counseling Given: Not Answered Alcohol Use Standard Drinks/Week Comments Never 0 (1 standard drink = 0.6 oz pur e alcohol) Comments No Sex and Gender Information Value Date Recorded Sex Assigned at Not on file Legal Sex Female 11:13 PM EDT Gender Identity Not on file Sexual Orientation Not on file Last Filed Vital Signs Vital Sign Reading Time Taken Comments Blood Pressure 118/82 10/31/2024 4:04 PM EDT Pulse - - Temperature - - Respiratory Rate - - Oxygen Saturation - - Inhaled Oxygen Concentration - - Weight 67.2 kg (148 lb 4 oz) 10/31/2024 4:04 PM EDT Height 160 cm (5' 3 ) 08/07/2022 2:35 PM EDT Body Mass Index 26.26 08/07/2022 2:35 PM EDT Plan of Treatment Not on file Insurance [facility]
--- OUTSIDE RECORDS SUMMARY | 2024-11-15 15:58 | XMS_ITS | Encounter Summary ---
Author Organization [facility] Address [address] [facility] [place] [address] Care Team Providers Care Fountain Dispenser Name Role Phone Unavailable Primary Care Provider Unavailabl e Encounter Details Date Type Department Care Team (Late st Contact Info) Description 08/13/2022 Abstract [facility] [address] [facility] [place] [phone] Zack Houston DO [address], [place] [address] Social History Tobacco Use Types Packs/Day Years [...]
--- OUTSIDE RECORDS SUMMARY | 2024-11-15 15:58 | XMS_ITS | Encounter Summary ---
Author Organization [facility] Address [address] [place] [address] Care Team Providers Care Internet Merchant Name Role Phone Unavailable Primary Care Provider Unavailabl e Encounter Details Date Type Department Care Team (Late st Contact Info) Description 08/01/2022 Abstract [facility] [address] [facility] [place] [phone] Zack Houston DO [address] [place] [place] [address], [place] [address] Social History Tobacco Use Types Packs/Day Years [...]
--- OUTSIDE RECORDS SUMMARY | 2024-11-15 15:58 | XMS_ITS | Encounter Summary ---
Author Organization [facility] Address [address] [facility] [place] [address] Care Team Providers Care Health Promotion Coordinator Name Role Phone Unavailable Primary Care Provider Unavailabl e Encounter Details Date Type Department Care Team (Late st Contact Info) Description 07/19/2022 Abstract [facility] [address] [place] [phone] Cindy James PA [address] [facility] [address] [place], [place] [address] Social History Tobacco Use Types Packs/Day Years [...]
== END 2024-11-15 15:51 | disposition home or self-care (01) ==
PROVIDERS: PCP Nurse Practitioner Family; Visit Provider Obstetrics & Gynecology
DX: O03.9 Complete or unspecified spontaneous abortion without complication (principal)
CPT/HCPCS: 36415; 84702

== ENCOUNTER 2024-12-06 15:45 | Outpatient (RCR) | payer BC, SELFPAY ==
--- OUTSIDE RECORDS SUMMARY | 2024-12-06 15:49 | XMS_ITS | Encounter Summary ---
Author Organization [facility] Address [address] [place] [address] Care Team Providers Care Associate Manager Name Role Phone Unavailable Primary Care Provider Unavailabl e Encounter Details DateTypeDepartmentCare Team (Latest Contact Info)Vdtfphhjyqn36/28/2025Telephone [facility] [address] [phone] Opal Agarwal MA [address] [facility] [place] [address] Social History Tobacco UseTypesPacks/DayYears UsedDateSmoking Tobacco: NeverAlcohol UseStandard Drinks/WeekCommentsNever0 (1 standard drink = 0.6 oz pure alcohol) CommentsNoSex and Gender InformationValueDate RecordedSex Assigned at BirthNot on fileLegal OgxOebgym58/15/2023 11:13 PM EDTGender IdentityNot on fileSexual OrientationNot on filedocumented as of this encounter Miscellaneous Notes * Telephone Encounter - Opal Agarwal MA - 12/06/2024 2:18 PM EDT Pt called and wanted to go over her hcg lab results for 11/15/2024. I advised pt that it shows she is not w/results of <1. Pt just had a miscarriage on 10/31/2024. Pt stated that she justtook a test on 11/25/2024 and 11/26/2024 and both came back +positive at home. I advised pt that I will send in an HCG order to have her labs drawn. Pt admitted to having intercourse in between the time she was having her HCG labs drawn from the miscarriage she just had last month. documented in this encounter Plan of Treatment NameTypePriorityAssociated DiagnosesOrder SchedulehCG, quantitative, LabRoutine Positive urine test ([facility]) Expected: 12/06/2024 (Approximate), Expires: 06/06/2025documented as of this encounter Visit Diagnoses Diagnosis Positive urine test ([facility]) documented in this encounter
--- OUTSIDE RECORDS SUMMARY | 2024-12-06 15:49 | XMS_ITS | Clinical Summary ---
Author Organization [facility] Address [address] [place] [address] Care Team Providers Care Electrician Shop Name Role Phone Unavailable Primary Care Provider Unavailabl e Allergies No known active allergies Medications MedicationSigDispense QuantityRefillsLast FilledStart DateEnd DateStatus iron polysaccharides (ProFe) 391.3 (180 Fe) MG capsule Take 1 capsule by mouth 1 (one) time each day at the same time.06/05/2022ctive Glucose Blood (GLUCOMETER DEX GLUCOSE SENSORS ) every 6 (six) hours.04/21/2022ctive Urinary Tract Infection Test (AZO TEST STRIPS ) as directed finger stick as directed for 30 days04/21/2022ctive Alcohol Swabs (Alcohol Prep Pads) 70 % pads every 6 (six) hours.04/21/2022ctive Vit-DSS-Fe Fum-FA (PNV FE FUM/DOCUSATE/FOLIC ACID PO) PNVActive ibuprofen 800 MG tablet Take 800 mg by mouth 3 (three) times a day as needed.08/03/2022ctive Active Problems ProblemNoted DateDiagnosed DateS/P xnehfma6908/07/20229499Sztvsc98/19/2023 Resolved Problems ProblemNoted DateDiagnosed DateResolved DateFoul smelling urine07/16/2022 07/28/2022idney stone/Missed gcpjgo49/ Recurrent UTI Encounters DateTypeDepartmentCare HihkVzfrdiqqflb27/28/2025Telephone [facility] [address] [place] [address] [place] [address] Opal Agarwal MA 5Clinisync Result Encounter [facility] External Department Unsolicited Zack Houston DO 10/31/2024 3:40 PM EDTOffice Visit [facility] [address] [place] [address] Zack Houston, DO Positive urine test ([facility]); Miscarriage ([facility])5Bamboo flowsheet [facility] [address] [place] [address] Zack Houston, 10/26/2024Telephone [facility] [address] [place] [address] Meredith Petersen LPN 10/24/2024Telephone [facility] [address] [place] [address] Opal Agarwal MA from Last 3 Months Family History Medical HistoryRelationNameCommentsNo Known ProblemsSonRelationNameStatus CommentsBrother 1AliveBrother 2AliveFatherAliveMotherAliveSonAlive Social History Tobacco UseTypesPacks/DayYears UsedDateSmoking Tobacco: Never Tobacco Cessation:Counseling Given: Not Answered Alcohol UseStandard Drinks/WeekCommentsNever0 (1 standard drink = 0.6 oz pure alcohol)CommentsNoSex and Gender InformationValueDate RecordedSex Assigned at BirthNot on fileLegal VwtYtaitt09/15/2023 11:13 PM EDTGender IdentityNot on fileSexual OrientationNot on file Last Filed Vital Signs Vital SignReadingTime TakenCommentsBlood Aegurbeb727/8209 4:04 PM EDT Pulse--Temperature--Respiratory Rate--Oxygen Saturation--Inhaled Oxygen Concentration--Lrnbfi58.2 kg (148 lb 4 oz)10/31/2024 4:04 PM TOTMytxfz993 cm (5' 3 )08/07/2022 2:35 PM EDTBody Mass Index26.26008/07/2022 2:35 PM EDT Plan of Treatment Not on file Procedures Procedure NamePriorityDate/TimeAssociated DiagnosisCommentsTBH PREG QUANT HCG Yxauely5611/15/2024 4:01 PM EDT from Last 3 Months Results * [facility] PREG QUANT HCG (11/15/2024 4:01 PM EDT)ComponentValueRef RangeTest Method Analysis TimePerformed AtPathologist SignatureHCG QUANTITATIVE<1mIU/mLTBH Comment: 5-50 ? 0.2-1 WEEK 50-500 ? 1-2 WEEKS 100-5,000 ?2-3 WEEKS 500-10,000 ? 3-4 WEEKS 1,000-50,000 ?? 4-5 WEEKS 10,000-100,000 5-6 WEEKS 15,000-200,000 6-8 WEEKS 10,000-100,000 2-3 MONTHS Specimen (Source)Anatomical Location / LateralityCollection Method / Volume Collection TimeReceived Time11/15/2024 4:01 PM EDT1 4:02 PM EDT Narrative [facility] - 11/15/2024 4:47 PM EDT Authorizing ProviderResult TypeResult StatusCorey Celso DOCLINISYNCFinal Result Performing OrganizationAddressCity/State/ZIP CodePhone Number [facility] from Last 3 Months Insurance
== END 2024-12-12 12:01 | disposition home or self-care (01) ==
LOC: LAB 15:45
PROVIDERS: PCP Nurse Practitioner Family; Visit Provider Obstetrics & Gynecology
DX: Z51.81 Encounter for therapeutic drug level monitoring (principal); Z32.01 Encounter for pregnancy test, result positive
CPT/HCPCS: 36415; 84702